=== PATIENT | female | born 1960 | race Caucasian/White ===

== ENCOUNTER → 2018-11-14 11:26 | Outpatient (CLI) | payer OTHER, SELFPAY ==
--- NOTE | 2018-11-14 | DI.US.S_ITS ---
PROCEDURE: US PERIPH VENOUS LOW EXTREM LT INDICATIONS: Pain in left lower leg TECHNIQUE: Real-time imaging, as well as color and pulse Doppler interrogation, were performed of the lower extremity deep veins from the inguinal ligament to the popliteal fossa. COMPARISON: None. FINDINGS: The common femoral, femoral and popliteal veins are normally compressible, and free of intraluminal thrombus. Color and pulse Doppler demonstrate normal phasic intraluminal flow. There is normal augmentation response to distal compression maneuver. IMPRESSION: Negative for deep venous thrombosis. Dictated by: Abel Wheeler M.D. on 11/14/2018 at 11:02 Approved by: Abel Wheeler M.D. on 11/14/2018 at 11:02
== END ==
PROVIDERS: PCP Family Medicine; Visit Provider Nurse Practitioner Family
DX: M79.662 Pain in left lower leg (principal)
CPT/HCPCS: 93971

== ENCOUNTER → 2019-01-22 12:55 | Outpatient (CLI) | payer OTHER, SELFPAY ==
--- NOTE | 2019-01-22 | DI.US.S_ITS ---
PROCEDURE: [facility] VENOUS LOW EXTREM LT INDICATIONS: PAIN IN LEFT LEG TECHNIQUE: Real-time imaging, as well as color and pulse Doppler interrogation, were performed of the lower extremity deep veins from the inguinal ligament to the popliteal fossa. COMPARISON: [facility], , [facility] VENOUS LOW EXTREM LT, 11/14/2018, 11:48. FINDINGS: The common femoral, femoral and popliteal veins are normally compressible, and free of intraluminal thrombus. Color and pulse Doppler demonstrate normal phasic intraluminal flow. There is normal augmentation response to distal compression maneuver. Note is made of superficial vein thrombus within the greater saphenous vein mid thigh level, presumably acute or subacute IMPRESSION: No DVT is is found. However, in the area of current tenderness there is is a finding of several varicosities and superficial veins of the left lower extremity that are thrombosed, consistent with superficial thrombophlebitis as presumed source of current symptomatology. Dictated by: Jignesh Dailey M.D. on 01/22/2019 at 14:32 Approved by: Jignesh Dailey M.D. on 01/22/2019 at 14:34
== END ==
PROVIDERS: PCP Family Medicine; Visit Provider Nurse Practitioner Family
DX: M79.605 Pain in left leg (principal); I83.812 Varicose veins of left lower extremity with pain; I82.812 Embolism and thrombosis of superficial veins of left lower extremity
CPT/HCPCS: 93971

== ENCOUNTER → 2019-03-17 12:03 | Outpatient (CLI) | payer OTHER, SELFPAY ==
--- NOTE | 2019-03-17 | DI.US.S_ITS ---
PROCEDURE: US PERIP VENOUS LOW EXTREM LT INDICATIONS: PHLEBITIS AND THORMBOPHLEBITIS TECHNIQUE: Real-time imaging, as well as color and pulse Doppler interrogation, were performed of the lower extremity deep veins from the inguinal ligament to the popliteal fossa. COMPARISON: [facility], , [facility] VENOUS LOW EXTREM LT, 01/22/2019, 13:19. FINDINGS: The common femoral, femoral and popliteal veins are normally compressible, and free of intraluminal thrombus. Color and pulse Doppler demonstrate normal phasic intraluminal flow. There is normal augmentation response to distal compression maneuver. IMPRESSION: 1. No deep venous thrombosis identified within the left lower extremity. 2. Result superficial thrombophlebitis. Dictated by: Lalito Henry [facility] Interpreted: Lyssa Montes De Oca MD on 03/17/2019 at 13:24 Approved by: Lyssa Montes De Oca MD, PhD on 03/17/2019 at 16:18
== END ==
PROVIDERS: PCP Family Medicine; Visit Provider Nurse Practitioner Family
DX: I80.02 Phlebitis and thrombophlebitis of superficial vessels of left lower extremity (principal)
CPT/HCPCS: 93971

== ENCOUNTER → 2019-04-16 11:02 | Outpatient (CLI) | payer OTHER, SELFPAY ==
--- NOTE | 2019-04-16 | DI.MG.S_ITS ---
BILATERAL DIGITAL SCREENING MAMMOGRAM 3D/2D WITH CAD: 04/16/2019 CLINICAL: Routine screening. Personal history of left breast cancer. Family history of breast cancer. Comparison is made to exams dated: 04/15/2018 mammogram, 04/12/2017 mammogram, and 04/10/2016 mammogram - [facility]. There are scattered fibroglandular elements in both breasts. Current study was also evaluated with a Computer Aided Detection (CAD) system. The left breast has post-operative findings. There are new regional coarse punctate calcifications in the right breast at 5 o'clock middle depth. No other significant masses, calcifications, or other findings are seen in either breast. IMPRESSION: INCOMPLETE: NEEDS ADDITIONAL IMAGING EVALUATION The new regional coarse punctate calcifications in the right breast are indeterminate. Mediolateral, spot magnification, and additional views are recommended. This exam was interpreted at Station ID: [id number]. NOTE: For mammograms, a report in lay terms will be sent to the patient. Approximately 15% of breast malignancies will not be visualized mammographically. In the management of a palpable breast mass, a negative mammogram must not discourage biopsy of a clinically suspicious lesion. Electronically Signed By: Claudy Cheatham M.D. aty/:04/16/2019 12:42:45 letter sent: Additional Imaging Needed ACR BI-RADS Category 0: Incomplete [id number]
== END ==
PROVIDERS: PCP Family Medicine; Visit Provider Nurse Practitioner Family
DX: Z12.31 Encounter for screening mammogram for malignant neoplasm of breast (principal); Z85.3 Personal history of malignant neoplasm of breast; Z80.3 Family history of malignant neoplasm of breast
CPT/HCPCS: 77063; 77067

== ENCOUNTER → 2019-05-14 14:04 | Outpatient (CLI) | payer OTHER, SELFPAY ==
--- NOTE | 2019-05-14 | DI.MG.S_ITS ---
UNILATERAL RIGHT DIGITAL DIAGNOSTIC MAMMOGRAM 3D/2D WITH ADDITIONAL VIEWS: 05/14/2019 CLINICAL: Additional evaluation for new indeterminate right breast calcifications. Of note, patient reports history of chest and breast trauma in the interim between recent screening mammogram dated and most current comparison mammogram dated . Comparison is made to exams dated: 04/16/2019 mammogram - [facility], 04/15/2018 mammogram, and 04/12/2017 mammogram - [facility]. There are scattered fibroglandular elements in right breast. There are regional dystrophic, punctate, round calcifications in the right breast at 5 o'clock middle depth. No other significant masses or calcifications are seen in the breast. IMPRESSION: PROBABLY BENIGN The regional dystrophic punctate round calcifications in the right breast are probably benign given their appearance and history of chest and breast trauma since her 2018 mammogram. A follow-up right mammogram in 6 months is recommended to demonstrate stability. This exam was interpreted at Station ID: [id number]. NOTE: For mammograms, a report in lay terms will be sent to the patient. Approximately 15% of breast malignancies will not be visualized mammographically. In the management of a palpable breast mass, a negative mammogram must not discourage biopsy of a clinically suspicious lesion. Electronically Signed By: Claudy Cheatham M.D. aty/:05/14/2019 15:28:30 letter sent: Followup Recommended ACR BI-RADS Category 3: Probably benign [id number]
== END ==
PROVIDERS: PCP Family Medicine; Visit Provider Nurse Practitioner Family
DX: R92.8 Other abnormal and inconclusive findings on diagnostic imaging of breast (principal); R92.1 Mammographic calcification found on diagnostic imaging of breast
CPT/HCPCS: 77065; G0279

== ENCOUNTER → 2021-11-04 15:58 | Outpatient (CLI) | payer OTHER, SELFPAY ==
--- NOTE | 2021-11-04 16:01 | DI.ECHO.S_ITS ---
[facility]---------+ [facility] +---------+ : : [address] : : : : [id number] : : : : Phone: [phone]---------+ Echocardiogram Report + + :Name: CLARICE ENGLAND Study Date: 11/04/2021 Height: 67 in : :[facility] ReadingLocation: Weight: 200 lb : : Gender: Female BSA: 2.0 m2 : :: 1960 Age: 61 yrs BP: 125/100 mmHg: :Reason For Study: Murmur : :Ordering Physician: [id number], : :STANLEY Performed By: Sanford Pedersen : :Referring: STANLEY RIZVI : + + Interpretation Summary The left ventricle is normal in size and wall thickness. The ejection fraction is estimated to be 60-65%. The right ventricle is normal in size and function. No significant valvular pathology seen. The IVC is of normal diameter and collapses greater than 50% with a sniff. This suggests a low right atrial pressure of 3 mm Hg. Procedure: A two-dimensional transthoracic echocardiogram with color flow and Doppler was performed. The study quality was technically adequate. There is no prior echocardiogram noted for this patient. The patient was in normal sinus rhythm during the exam. Left Ventricle: The left ventricle is normal in size and wall thickness. There is no thrombus. Left ventricular systolic function is normal. The ejection fraction is estimated to be 60-65%. There are no focal wall motion abnormalities. Diastolic parameters suggest a relaxation abnormality of the left ventricle, consistent with probable normal filling pressures. Right Ventricle: The right ventricle is normal in size and function. Atria: Both atria are normal in size. The interatrial septum grossly appears intact with no obvious evidence for an atrial septal defect. Mitral Valve: The mitral valve leaflets are slightly calcified. There is trace mitral regurgitation. Aortic Valve: The aortic valve is normal in structure and function. The aortic valve is trileaflet. There is no aortic valve stenosis. No aortic regurgitation is present. Tricuspid Valve: The tricuspid valve is normal in structure and function. No tricuspid regurgitation. Pulmonary artery pressures cannot be estimated because of the lack of a measurable TR jet velocity. Pulmonic Valve: The pulmonic valve is normal in structure and function. There is trace pulmonic regurgitation. Great Vessels: The aortic root is normal size. The dimensions of the ascending aorta are normal. The IVC is of normal diameter and collapses greater than 50% with a sniff. This suggests a low right atrial pressure of 3 mm Hg. Pericardium/ Pleura There is no pericardial effusion. There is an anterior echo-free space consistent with a fat pad. There is no pleural effusion. MMode/2D Measurements & Calculations LVIDd: 4.2 cm LVOT diam: 2.1 cm LVIDs: 2.8 cm Ao root diam: 3.4 cm FS: 32.3 % asc Aorta Diam: 3.2 cm IVSd: 0.91 cm LVPWd: 0.96 cm LV luong. diameter/BSA (cm/m^2): 2.1 LV sys. diameter/BSA (cm/m^2): 1.4 LA A2 area: 13.8 cm2 RA long axis: 4.5 cm LA A4 area: 13.3 cm2 RA area: 9.7 cm2 LA length (vol): 4.2 cm RA vol: 17.4 ml LA vol: 37.1 ml RA : 8.6 ml/m2 LA vol index: 18.4 ml/m2 TAPSE: 1.8 cm Doppler Measurements & Calculations Ao V2 max: 110.0 cm/sec LVOT Max Gavin: 101.3 cm/sec Ao V2 mean: 81.1 cm/sec LV V1 max P.1 mmHg Ao max P.8 mmHg LV V1 VTI: 16.8 cm Ao mean P.8 mmHg DWAYNE(I,D): 3.1 cm2 Ao V2 VTI: 17.9 cm DWAYNE(V,D): 3.0 cm2 sev ratio: 0.94 DWAYNE indexed to BSA (cm^2/m^2): 1.5 MV E max gavin: 43.5 cm/sec SV(LVOT): 55.6 ml MV A max gavin: 67.8 cm/sec MV E/A: 0.64 Med Peak E' Gavin: 5.1 cm/sec E/E' med: 8.5 Lat Peak E' Gavin: 6.4 cm/sec E/E' lat: 6.7 E/e' average: 7.6 MV dec time: 0.18 sec Reading Physician:11:26 AM
== END ==
PROVIDERS: PCP Nurse Practitioner Family
DX: R01.2 Other cardiac sounds (principal)
CPT/HCPCS: 93306